=== PATIENT | female | born 1985 | race African-American/Black ===

== ENCOUNTER 2023-11-10 23:52 | Emergency (ER) | payer MEDICAID ==
[~2023-11-10] VITALS: Ht 152.4 cm; Wt 82.0 kg
[2023-11-11 00:07] VITALS: BP 141/83; PULSE 83; RESP 12; TEMP 98.1; O2SAT 100
== END 2023-11-11 08:17 | disposition left against medical advice (07) ==
LOC: ER 11-11 00:07
DX: R20.0 Anesthesia of skin (principal); Z53.21 Procedure and treatment not carried out due to patient leaving prior to being seen by health care provider
CPT/HCPCS: 81025; 99281

== ENCOUNTER 2024-11-06 21:17 | Emergency (ER) | payer MEDICAID ==
[~2024-11-06] VITALS: Ht 167.6 cm; Wt 100.0 kg
[2024-11-06 21:40] VITALS: TEMP 36.6; O2SAT 100
[2024-11-07] MEDS: PREDNISONE 20MG TABLET PO ONE (00:03)
[2024-11-07] MEDS: DIPHENHYDRAMINE 25MG CAPSULE PO ONE (00:03)
[2024-11-07] MEDS ORDERED: P50 MT (00:52)
[2024-11-07] MEDS ORDERED: DIPH25CA83 MT (00:52)
[2024-11-07] MEDS ORDERED: ALBU18HF2 IH (00:57)
[2024-11-07 01:00] VITALS: BP 153/83; PULSE 84; RESP 16; O2SAT 98
== END 2024-11-07 01:07 | disposition home or self-care (01) ==
LOC: ER 21:17
DX: T78.1XXA Other adverse food reactions, not elsewhere classified, initial encounter (principal); F41.9 Anxiety disorder, unspecified; Z79.899 Other long term (current) drug therapy; X58.XXXA Exposure to other specified factors, initial encounter
CPT/HCPCS: 99283; Q0163; J7512